=== PATIENT | female | born 1975 | race Caucasian/White ===

== ENCOUNTER 2020-01-23 23:42 | Emergency (ER) | payer MEDICAID, OTHER ==
[~2020-01-23] VITALS: Ht 154.9 cm; Wt 63.5 kg
[2020-01-23 23:43] VITALS: BP_SYST 114
--- NOTE | 2020-01-23 23:43 | NUR ---
Patient to ER bed CH1 to for evaluation. [place] [facility].
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
--- NOTE | 2020-01-24 00:20 | NUR ---
ER at bedside examining patient.
[2020-01-24] MEDS ORDERED: IBUPROFEN 800 MG TABLET PO ONE (00:30)
[2020-01-24 01:05] VITALS: BP_SYST 118
--- NOTE | 2020-01-24 01:05 | NUR ---
Patient given written and verbal discharge instructions and verbalizes understanding. ER MD discussed with patient the results and treatment provided. Patient in stable condition. ID arm band removed. Pt Refused RX given. Patient educated on pain management and to follow up with PMD. Pain Scale 4/10. Opportunity for questions provided and answered.
== END 2020-01-24 01:05 ==
LOC: SED 23:42
DX: R07.89 Other chest pain (principal); G47.9 Sleep disorder, unspecified
CPT/HCPCS: 71046-TC; 93005; 99283

== ENCOUNTER 2020-02-09 01:43 | Emergency (ER) | payer MEDICAID ==
[~2020-02-09] VITALS: Ht 154.9 cm; Wt 63.5 kg
[2020-02-09 01:43] VITALS: BP_SYST 120
--- NOTE | 2020-02-09 02:15 | NUR ---
Patient to ER bed 03 to gown for evaluation. Side rails up.
--- NOTE | 2020-02-09 02:20 | NUR ---
ER at bedside examining patient.
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
--- NOTE | 2020-02-09 03:26 | NUR ---
Pt expressed the desire to not be treated, wants to be discharged to go home.
[2020-02-09 04:15] VITALS: BP_SYST 120
--- NOTE | 2020-02-09 04:15 | NUR ---
Patient given written and verbal discharge instructions and verbalizes understanding. ER MD discussed with patient the results and treatment provided. Patient in stable condition. ID arm band removed.No IV No RX given. Patient educated on pain management and to follow up with PMD. Pain Scale 0/10. Opportunity for questions provided and answered.
== END 2020-02-09 04:15 | disposition home or self-care (01) ==
LOC: SED 01:43
DX: R41.82 Altered mental status, unspecified (principal)
CPT/HCPCS: 99283